=== PATIENT | male | born 1970 | race Caucasian/White ===

== ENCOUNTER 2022-09-02 21:31 | Emergency (ER) | payer BC ==
[~2022-09-02] VITALS: Ht 170.2 cm; Wt 99.8 kg
[2022-09-02] MEDS ORDERED: KETOROLAC 60 MG VIAL (30MG/ML) IM ONE (22:00)
[2022-09-02] MEDS ORDERED: NAPR-1180 PO (22:14)
[2022-09-02 22:28] VITALS: BP 122/89
== END 2022-09-02 22:32 | disposition home or self-care (01) ==
LOC: EDH 21:31
DX: S46.912A Strain of unspecified muscle, fascia and tendon at shoulder and upper arm level, left arm, initial encounter (principal); W19.XXXA Unspecified fall, initial encounter; Y93.89 Activity, other specified; Y92.89 Other specified places as the place of occurrence of the external cause; Y99.8 Other external cause status
CPT/HCPCS: 99284; 73030; 96372; J1885